=== PATIENT | female | born 1960 | race African-American/Black ===

== ENCOUNTER → 2017-01-11 | Outpatient (REF) | payer OTHER | LOC: M SFHCPLAZ 11:41 | PROVIDERS: ATTEND Physician Assistant Medical | DX: R30.0 Dysuria (principal) ==

== ENCOUNTER → 2017-01-19 | Outpatient (CLI) | payer OTHER ==
[~2017-01-19] MED LIST: ISOVUE-370 76% 100ML VIAL (Q9967) As Ordered ONE
--- NOTE | 2017-01-19 18:51 | REP ---
CT urography: Without and with IV contrast. History: Dysuria. Comparison KUB study . Renal sonography from that same date showed question intrarenal calculi versus vascular calcification. CT contrast dose: 100 mL of Isovue [address] findings: The lung bases are clear on axial CT images. There is mild to moderate diffuse fatty infiltration of the liver with areas of fat sparing near the gallbladder. No focal hepatic mass lesion is appreciated. The spleen contains one or two calcifications but is otherwise intact. No adrenal lesion is seen. No pancreatic abnormality is observed. Gallbladder is unremarkable. There is some vascular calcification in a normal caliber aorta. Noncontrast CT study shows no evidence of urinary tract calculus. No bladder calculus is observed. There is a tiny cyst in the right mid kidney measuring 0.5 cm in diameter. No renal mass lesion is observed. There is an area of cortical scarring in the right mid kidney as well anterolaterally. No renal mass or other cyst is seen. No leak collecting system mass lesion is seen. Ureters describe a normal course to the bladder. No bladder mass is appreciated. There is garcia colonic diverticulosis without CT evidence of diverticulitis. The uterus is surgically absent. There are degenerative disc changes at L4-5 and L5-S1. There are some scattered sclerotic foci in the skeleton. These include a dense area of sclerosis involving the right L1 pedicle extending into the transverse process and right lamina at L1. There are small subcentimeter foci of sclerosis in the transverse process on the right at L5, in the posterior midline of L5, and in the iliac bone on the right there are 2-3 small subcentimeter foci of sclerosis. There is a sclerotic lesion in the right inferior acetabulum which measures 1.8 cm in greatest diameter. These may be normal bone islands or small benign osteomas. Further evaluation with radionuclide bone scanning is suggested. Impression: 1. Mild to moderate fatty infiltration of the liver. 2. Focal cortical scarring and tiny subcentimeter renal cyst right mid kidney. 3. Scattered foci of endosteal sclerosis in the lumbar spine and pelvic bones uncertain significance. These may be a normal bone islands. Consider radionuclide bone scan.. Signed by Erwin Valles MD 01/19/2017 07:14 P
== END ==
LOC: M RAD 16:15
PROVIDERS: ATTEND Physician Assistant Medical
DX: R30.0 Dysuria (principal)

== ENCOUNTER → 2017-02-18 | Outpatient (CLI) | payer OTHER ==
[2017-02-18 16:45] LABS: ALBUMIN 4.1 GM/DL (3.2-5.2); ALBUMIN/GLOBULIN RATIO 1.46 (1.00-1.93); ALKALINE PHOSPHATASE 97 U/L (45-117); ALT/SGPT 25 U/L (12-78); ANION GAP 11 MEQ/L (8-16); AST/SGOT 11 U/L (15-37); BILIRUBIN,TOTAL 0.5 MG/DL (0.2-1.0); BLOOD UREA NITROGEN 8 MG/DL (7-18); CARBON DIOXIDE LEVEL 25 MEQ/L (21-32); CHLORIDE LEVEL 105 MEQ/L (98-107); CREATININE FOR GFR 0.81 MG/DL (0.55-1.02); GLOMERULAR FILTRATION RATE > 60.0 (>51); GLUCOSE, FASTING 105 MG/DL (70-105); POTASSIUM SERUM 4.2 MEQ/L (3.5-5.1); SODIUM LEVEL 141 MEQ/L (136-145); TOTAL PROTEIN 6.9 GM/DL (6.4-8.2)
[2017-02-18 16:47] LABS: BASO # 0.1 K/mm3 (0.0-0.2); BASO % 0.5 % (0.0-1.0); EOS # 0.1 K/mm3 (0.0-0.50); EOS % 0.8 % (0.0-3.0); LARGE UNSTAINED CELL # 0.1 K/mm3 (0.0-0.4); LYMPH % 22.7 % (24.0-44.0); MEAN CORPUSCULAR HEMOGLOBIN 30.6 pg (27.0-33.0); MONO # 0.6 K/mm3 (0.0-0.8); PLATELET COUNT, AUTOMATED 423 k/mm3 (150-450); RED CELL DISTRIBUTION WIDTH 14.2 % (11.5-14.5); WHITE BLOOD COUNT 12.8 K/mm3 (4.0-10.0)
--- NOTE | 2017-02-19 02:33 | REP ---
Clinical: Acute upper respiratory tract infection . Comparison: 12/13/2015 . Technique: PA and lateral. Findings: The mediastinum and cardiac silhouette are normal. The lung dorado are clear and without acute consolidation, effusion, or pneumothorax. The skeletal structures are intact and normal. Impression: 1. No acute cardiopulmonary process. Signed by Sumeet Vásquez MD 02/19/2017 02:25 A
== END ==
LOC: M RAD 12:25
PROVIDERS: ATTEND Physician Assistant Medical
DX: J06.9 Acute upper respiratory infection, unspecified (principal)

== ENCOUNTER → 2017-03-05 | Outpatient (CLI) | payer OTHER ==
--- NOTE | 2017-03-05 15:03 | REPMRS ---
Patient History The patient states she has not had a clinical breast exam in over a year. Patient is nulliparous. Family history of endometrial cancer in mother at age 50 or over. Benign excisional biopsy of the right breast, 2004. Benign excisional biopsy of the right breast, 1994. Digital Woman Screen Mammo: March 05, 2017 - Exam #: [id number] Bilateral CC and MLO view(s) were taken. Technologist: Nancy Chapman, Technologist Prior study comparison: April 17, 2015, digital bilateral screening mammo, performed at [facility]. FINDINGS: There are scattered fibroglandular densities. There is a moderate amount of residual fibroglandular tissue which is fairly symmetric. There is no interval development of dominant mass, architectural distortion, or clustered microcalcification typical of malignancy. There has been no change in the appearance of the mammogram from the prior studies. ASSESSMENT: BI-RADS/ACR category 1 mammogram. Negative. Recommendation Routine screening mammogram of both breasts in 1 year (for women over age 40). This mammogram was interpreted with the aid of an FDA-approved computer-aided dectection system. Electronically Signed By: Daniel Valles MD 03/05/17 [id number]
--- NOTE | 2017-03-09 10:58 | DEXA ---
AP SPINE L1 - L4 1.251 0.5 0.1 LT FEMUR TOTAL 1.018 0.1 -0.6 RT FEMUR TOTAL 1.058 0.4 -0.3 TOTAL BODY TOTAL OTHER DUAL FEMUR FRAX* ASSESSMENT Risk factors: History of fracture (adult). Tobacco user (current smoker). 10 year probability of fracture Major osteoporotic fracture 10.3 % Hip fracture 0.6 % COMMENTS: Normal bone densitometry of the spine and hips. The density of the spine has decreased 2.9% since 04/02/2015. The density of the left hip has increased 0.4% since 04/02/2015. The density of the right hip has decreased 0.5% since 04/02/2015. FOLLOW-UP: Recommendation for the next bone density exam: 5 years. AMADOR
== END ==
LOC: M WHC 13:50
PROVIDERS: ATTEND Physician Assistant Medical
DX: Z12.31 Encounter for screening mammogram for malignant neoplasm of breast (principal); Z78.0 Asymptomatic menopausal state

== ENCOUNTER → 2017-03-10 | Outpatient (CLI) | payer OTHER ==
--- NOTE | 2017-03-10 15:12 | REP ---
Whole body radionuclide bone scan: History: Lumbar back pain with radiculopathy left lower extremity. Technique: 20.3 mCi technetium 99m MDP is injected and standard bone scan images are acquired. Scintigraphic findings: There is a normal distribution of skeletal tracer with uptake in bilateral kidneys and in the urinary bladder. There is mild degenerative uptake on the right at the mid thoracic spine level in one of the costovertebral joints. This appears to be T6. No abnormal lumbar uptake is seen. There is arthritic uptake in the small joints of the feet and in the knees bilaterally. Impression: No evidence of metastatic disease. Mild degenerative and arthritic uptake pattern. Signed by Erwin Valles MD 03/10/2017 03:50 P
== END ==
LOC: M RAD 10:20
PROVIDERS: ATTEND Physician Assistant Medical
DX: M54.5 Low back pain (principal)

== ENCOUNTER → 2017-05-20 | Outpatient (REF) | payer OTHER ==
[2017-05-20 16:21] LABS: ALBUMIN 3.8 GM/DL (3.2-5.2); ALBUMIN/GLOBULIN RATIO 1.36 (1.00-1.93); ALKALINE PHOSPHATASE 90 U/L (45-117); ALT/SGPT 29 U/L (12-78); ANION GAP 8 MEQ/L (8-16); AST/SGOT 13 U/L (15-37); BILIRUBIN,TOTAL 0.3 MG/DL (0.2-1.0); BLOOD UREA NITROGEN 6 MG/DL (7-18); CARBON DIOXIDE LEVEL 28 MEQ/L (21-32); CHLORIDE LEVEL 109 MEQ/L (98-107); CHOLESTEROL LEVEL 247 MG/DL (<200); CREATININE FOR GFR 0.78 MG/DL (0.55-1.02); GLOMERULAR FILTRATION RATE > 60.0 (>51); GLUCOSE, FASTING 101 MG/DL (70-105); SODIUM LEVEL 145 MEQ/L (136-145); TOTAL PROTEIN 6.6 GM/DL (6.4-8.2); TRIGLYCERIDES LEVEL 157 MG/DL (<150)
[2017-05-20 16:50] LABS: BASO % 0.6 % (0.0-1.0); EOS # 0.2 K/mm3 (0.0-0.50); EOS % 1.9 % (0.0-3.0); LARGE UNSTAINED CELL # 0.2 K/mm3 (0.0-0.4); LARGE UNSTAINED CELL % 1.9 % (0.0-4.0); LYMPH # 2.1 K/mm3 (1.5-4.5); LYMPH % 26.7 % (24.0-44.0); MEAN CORPUSCULAR HEMOGLOBIN 29.9 pg (27.0-33.0); MEAN CORPUSCULAR HGB CONC 33.1 g/dl (32.0-36.5); MEAN CORPUSCULAR VOLUME 90.4 fl (80.0-96.0); MONO # 0.4 K/mm3 (0.0-0.8); MONO % 4.7 % (0.0-5.0); NEUTROPHILS # 5.2 K/mm3 (1.8-7.7); NEUTROPHILS % 64.2 % (36.0-66.0); PLATELET COUNT, AUTOMATED 412 k/mm3 (150-450); RED CELL DISTRIBUTION WIDTH 14.1 % (11.5-14.5)
== END ==
LOC: M SFHCPLAZ 13:03
PROVIDERS: ATTEND Physician Assistant Medical
DX: I10 Essential (primary) hypertension (principal); E78.5 Hyperlipidemia, unspecified; E55.9 Vitamin D deficiency, unspecified

== ENCOUNTER → 2018-01-18 | Outpatient (REF) | payer MEDICARE, MEDICAID ==
[2018-01-18 19:01] LABS: ALBUMIN/GLOBULIN RATIO 1.29 (1.00-1.93); ALKALINE PHOSPHATASE 90 U/L (45-117); ALT/SGPT 25 U/L (12-78); ANION GAP 3 MEQ/L (8-16); AST/SGOT 11 U/L (7-37); BILIRUBIN,TOTAL 0.3 MG/DL (0.2-1.0); BLOOD UREA NITROGEN 8 MG/DL (7-18); CALCIUM LEVEL 8.8 MG/DL (8.5-10.1); CARBON DIOXIDE LEVEL 30 MEQ/L (21-32); CHLORIDE LEVEL 110 MEQ/L (98-107); CHOLESTEROL LEVEL 226 MG/DL (<200); CHOLESTEROL RISK RATIO 6.277 (<5); CPK CREATINE PHOSPHOKINASE 106 U/L (26-192); CREATININE FOR GFR 0.68 MG/DL (0.55-1.30); FREE T4 0.83 NG/DL (0.76-1.46); GLOMERULAR FILTRATION RATE > 60.0 (>51); GLUCOSE, FASTING 94 MG/DL (70-100); HDL CHOLESTEROL 36 MG/DL (>40); LDL CHOLESTEROL 156.4 MG/DL (<100); NON-HDL-C 190 MG/DL; POTASSIUM SERUM 4.6 MEQ/L (3.5-5.1); SODIUM LEVEL 143 MEQ/L (136-145); THYROID STIMULATING HORMONE 0.622 uIU/ML (0.358-3.740); TOTAL PROTEIN 7.1 GM/DL (6.4-8.2); TRIGLYCERIDES LEVEL 168 MG/DL (<150)
== END ==
LOC: M SFHCPLAZ 16:10
DX: E55.9 Vitamin D deficiency, unspecified (principal); E78.00 Pure hypercholesterolemia, unspecified; F32.9 Major depressive disorder, single episode, unspecified
CPT/HCPCS: 82550